=== PATIENT | male | born 1975 | race Hispanic/Latino ===

== ENCOUNTER 2019-05-25 05:35 | Day surgery (SDC) | payer MEDICAID ==
[~2019-05-25] VITALS: Ht 162.6 cm; Wt 113.4 kg
[~2019-05-25 05:35] MED LIST: GABA-531 PO; LACT10SO PO; OMEP40CA13 PO
[2019-05-25] MEDS ORDERED: SODIUM CHLORIDE 0.9% 1000ML 1,000 ML IV ONE (05:44)
[2019-05-25 06:04] VITALS: BP 126/67
[2019-05-25] MEDS ORDERED: ICOS1CAP PO (06:26)
[2019-05-25] MEDS ORDERED: FENO150C4 PO (06:26)
[2019-05-25] MEDS ORDERED: ACET1TAB12 PO (06:26)
[2019-05-25] MEDS ORDERED: TAMS-1 PO (06:26)
[2019-05-25] MEDS ORDERED: TRAM-355 PO (06:26)
[2019-05-25] MEDS ORDERED: LIDOCAINE HCL 1% 20 ML VIAL ONE (06:54)
[2019-05-25] MEDS ORDERED: PROPOFOL 10 MG/ML 20ML VIAL IV ONE (06:54)
[2019-05-25] MEDS ORDERED: MIDAZOLAM HCL 1 MG/ML 2ML VIAL ONE (07:06)
[2019-05-25 07:24] VITALS: BP 108/57
[2019-05-25 07:28] VITALS: BP 102/59
[2019-05-25 07:33] VITALS: BP 96/65
[2019-05-25 07:38] VITALS: BP 104/62
[2019-05-25 07:43] VITALS: BP 123/75
== END 2019-05-25 07:50 | disposition home or self-care (01) ==
LOC: DAH 05:35 → ENDO 05:35
PROVIDERS: ATTEND Internal Medicine
DX: K59.00 Constipation, unspecified (principal); K64.1 Second degree hemorrhoids; K57.30 Diverticulosis of large intestine without perforation or abscess without bleeding; K92.1 Melena; E78.5 Hyperlipidemia, unspecified; I10 Essential (primary) hypertension; K76.0 Fatty (change of) liver, not elsewhere classified; K21.9 Gastro-esophageal reflux disease without esophagitis; Z99.89 Dependence on other enabling machines and devices; B96.81 Helicobacter pylori [H. pylori] as the cause of diseases classified elsewhere; Z79.899 Other long term (current) drug therapy; Z98.890 Other specified postprocedural states; G47.30 Sleep apnea, unspecified
CPT/HCPCS: 45378; A4215; A4221; A4222; A4223; A4606; A4615; A4663; J2250; J2704; J7030